=== PATIENT | male | born 1960 | race Two or more races ===

== ENCOUNTER 2017-05-01 08:11 | Inpatient (IN) | payer OTHER ==
[~2017-05-01] VITALS: Ht 170.2 cm; Wt 60.8 kg
[2017-05-01 08:39] LABS: BASOPHIL % 0.3 % (0-2); PLATELET COUNT 239 x10^3mcL (130-400); RED CELL DISTRIBUTION WIDTH 15.8 % (11.5-14.5)
[2017-05-01 08:44] LABS: CALCIUM 8.7 mg/dL (8.5-10.1); CARBON DIOXIDE 29.7 mmol/L (21-32); CHLORIDE SERUM 97 mmol/L (98-107); CREATININE SERUM 1.1 mg/dL (0.7-1.3); GFR1 > 60 mL/min; GLUCOSE SERUM 106 mg/dL (74-106); POTASSIUM SERUM 5.1 mmol/L (3.5-5.1); SODIUM SERUM 133 mmol/L (136-145)
[2017-05-01 08:48] LABS: ALKALINE PHOSPHATASE 195 U/L (46-116); ALT/SGPT 25 U/L (16-63); AST/SGOT 147 U/L (15-37); BILIRUBIN TOTAL 0.99 mg/dL (0.20-1.00); LIPASE 349 IU/L (73-393); TOTAL PROTEIN, SERUM 7.6 g/dL (6.4-8.2); TRIGLYCERIDES 108 mg/dL (<150)
[2017-05-01 08:51] LABS: ALBUMIN 2.6 g/dL (3.4-5.0); CHOLESTEROL 84 mg/dL (<200); HDL CHOLESTEROL 14 mg/dL (40-60)
[2017-05-01 08:59] LABS: FREE T4 1.53 ng/dL (0.76-1.46); FREE THYROXINE INDEX 3.4 ug/dL (1.4-4.5); T4(THYROXINE) 10.6 ug/dL (4.7-13.3)
[2017-05-01 09:34] LABS: T3 TOTAL 1.08 ng/mL
[2017-05-01] MEDS ORDERED: MORL (10:53)
[2017-05-01] MEDS ORDERED: ZOF4 PO (10:54)
[2017-05-01] MEDS ORDERED: SEN PO (10:54)
[2017-05-01] MEDS ORDERED: PRILOSEC OTC20 M1 PO (10:54)
[2017-05-01 12:20] VITALS: BP 126/57
[2017-05-01 17:14] LABS: microscopic required? YES; urine erythrocyte NEGATIVE (NEGATIVE)
[2017-05-01 18:26] VITALS: BP 124/63
[2017-05-01 20:25] VITALS: BP 127/66
[2017-05-02 05:47] VITALS: BP 126/75
[2017-05-02 06:08] LABS: BASOPHIL % 0.3 % (0-2); PLATELET COUNT 230 x10^3mcL (130-400)
[2017-05-02 06:15] LABS: CALCIUM 8.5 mg/dL (8.5-10.1); CARBON DIOXIDE 30.6 mmol/L (21-32); CHLORIDE SERUM 103 mmol/L (98-107); CREATININE SERUM 1.2 mg/dL (0.7-1.3); GFR1 > 60 mL/min; GLUCOSE SERUM 103 mg/dL (74-106); POTASSIUM SERUM 5.5 mmol/L (3.5-5.1); SODIUM SERUM 139 mmol/L (136-145)
[2017-05-02 06:36] LABS: RED CELL DISTRIBUTION WIDTH 15.8 % (11.5-14.5)
[2017-05-02 08:48] VITALS: BP 126/75
[2017-05-02 10:47] VITALS: BP 130/77
[2017-05-02 13:44] VITALS: BP 130/77
== END 2017-05-02 18:17 | disposition other institution (70) | DRG 436 ==
LOC: ED 08:11 → DU 10:59
PROVIDERS: Specialist; ADMIT Internal Medicine
DX: C22.0 Liver cell carcinoma (principal); C79.9 Secondary malignant neoplasm of unspecified site; B18.2 Chronic viral hepatitis C; J44.9 Chronic obstructive pulmonary disease, unspecified; K72.90 Hepatic failure, unspecified without coma; K74.60 Unspecified cirrhosis of liver; I10 Essential (primary) hypertension
CPT/HCPCS: 83880; 84439; J1170; J1885; J2405; J3490; J7030; J7620; Q0092; Q0162